=== PATIENT | male | born 1980 | race Caucasian/White ===

== ENCOUNTER → 2024-01-07 | Outpatient (CLI) | payer MEDICAID, SELFPAY ==
--- NOTE | 2024-01-07 10:10 | LES_PTH ---
PATIENT: FRANCISCO AMADOR [facility] U#:[id number] AGE/SX: 43/M ROOM: RE01/07/[address]: Dr. Giorgio Valerio MD : 1980 BED: DIS: 01/07/2024 SPEC #: [id number] RECD: 01/07/24 15:05 STATUS: WAQAR TAWANNA #: [id number] ALEN: 01/07/24 10:[address]: Giorgio Valerio DEPT: SURGICAL PATHOLOGY RECD BY: Montserrat Gee ENTERED: 01/08/24 08:00 SP TYPE: Lesion OTHR DR: AVANI Tissues: Oral cavity, NOS Procedures: Surgery Specimen Level IV HEADER OPERATION: Left excision lip lesion PRE-OP DIAGNOSIS: Other lesions of oral mucosa TISSUE SUBMITTED: Oral cavity lesion MICROSCOPIC DIAGNOSIS Oral cavity lesion, excision: Squamous mucosa with subepithelial fibrosis, consistent with irritation fibroma. SJ/mr 01/09/2024 COMMENT Correlation with clinical findings and appropriate follow up are necessary. MICROSCOPIC DESCRIPTION Slides are reviewed. GROSS DESCRIPTION Received in fixative is one container labeled with the patient's name and designated Oral cavity lesion. The specimen consists of a polypoid piece of mosqueda mucosa measuring 0.7 x 0.6 x 0.5cm. This specimen is bisected and submitted entirely in one cassette. EDNA/ 01/08/2024 TC:5 CPT:97916
== END | disposition home or self-care (01) ==
LOC: LABSPEC 15:28
PROVIDERS: PCP Otolaryngology; Referring Provider Otolaryngology; Visit Provider Otolaryngology
DX: K13.5 Oral submucous fibrosis (principal)
CPT/HCPCS: 88305

== ENCOUNTER → 2024-10-29 | Outpatient (CLI) | payer MEDICAID, SELFPAY ==
[2024-10-31 15:07] LABS: QNTFERON TB Mitogen Value > 10.00 IU/mL (.); QNTFERON TB Nil Value 0.09 IU/mL (.); QNTFERON TB1+ Ag Value 0.09 IU/mL (.); QNTFERON TB2+ Ag Value 0.09 IU/mL (.); QNTIFERON TB Positive Criteria Negative (Negative)
== END | disposition home or self-care (01) ==
LOC: MTLAB 14:20
PROVIDERS: PCP Family Medicine; Referring Provider Physician Assistant Medical; Visit Provider Physician Assistant Medical
DX: L40.0 Psoriasis vulgaris (principal); B35.3 Tinea pedis; Z79.899 Other long term (current) drug therapy
CPT/HCPCS: 36415; 86480

== ENCOUNTER → 2025-06-08 | Outpatient (CLI) | payer MEDICAID, SELFPAY ==
--- OUTSIDE RECORDS SUMMARY | 2025-06-08 14:35 | XMS RPT_ITS | CCD ---
Author Organization [facility] Care Team Providers Care Manager Water Name Role Phone Teodoro MARINO, Dr. Alvares Primary Care Provid er Dr. Giorgio Valerio MD Referring Provider Candido Solares Attending Provider Ev Galeana PA-C Primary Care Provider Leroy Leyva Attending Provider Leroy Leyva Referring Provider Giorgio Valerio Primary Care Unavailshirin Valerio, Giorgio Referring UnavailCandido Wilcox Attending Unavailable Giorgio Valerio Primary Care Unavailshirin Valerio, Giorgio Attending UnavailGiorgio Nieto Referring UnavailLeroy Hemphill Referring Unavailable Ev Costello Primary Care Unavailable Leroy Leyva Attending Unavailable EV GALEANA Admitting Unavailable HUGO EV Primary Care Unavailable HUGOEV Consulting Unavailable HUGO, EV Attending Unavailable PROVIDER, UNKNOWN Consulting Unavailable HUGO EV Attending Unavailable HUGO EV Admitting Unavailable HUGO NORWOOD Primary Care Unavailable EV GALEANA PA-C Primary Care Physician [phone] EV GALEANA PA-C Primary Care Unavailable ALMA ROSA CHERY MD Attending Unavailable ALMA ROSA CHERY MD Attending Unavailable EV GALEANA PA-C Primary Care Unavailable Medications Current Medications Medication Drug Class(es) Dates Sig (Normalized) Sig (Original) aspirin 81 mg delayed release oral tablet (3 sources) Platelet Aggregation Inhibitor, Nonsteroidal Anti-inflammatory Drug Start: 01-26-2025 take 1 mg by mouth once daily aspirin 81 mg oral delayed release tablet mg = tab(s), Oral, qDay, 0 Refill(s) Start Date: 01/26/25 Status: Ordered Medication Dispense Status: Completed Total Allowed Fills: 1 Fills Dispensed: 0 Start: 08-18-2024 Aspirin (Adult Low Dose Aspirin) 81 mg tablet,delayed release (DR/EC) Active 81 mg PO daily August 18, 2024 1:00am 12 hr dextromethorphan hydrobromide 60 mg / guaiFENesin 1200 mg extended release oral tablet (1 source) Uncompetitive O-cbkrbl-K-aspartate Receptor Antagonist, Sigma-1 Agonist Start: 08-18-2024 take 60-1200 mg by mouth every twelve hours as needed Dextromethorphan-Guaifenesin (Mucinex Dm) 60-1,200 mg tablet extended release 12 hr Active 1 {tbl} PO Q12H as needed for cold symptoms August 18, 2024 1:00am fluticasone propionate 0.05 mg/actuat metered dose nasal spray (1 source) Corticosteroid Start: 08-18-2024 take 50 ug nasal route once daily Fluticasone Propionate (Allergy Relief (Fluticasone)) 50 mcg/actuation spray,suspension Active 1 NMA INTRANASAL DAILY 16 August 18, 2024 1:00am administer into each nostril Vitamin D3 (2 sources) Start: 01-26-2025 Vitamin D3 0 Refill(s) Start Date: 01/26/25 Status: Ordered Medication Dispense Status: Completed Total Allowed Fills: 1 Fills Dispensed: 0 Problems Active Problems Problem Classification Problem Date Documented Da te Episodic/Chronic Malaise and fatigue (1 source) Other fatigue; Translations: [Other fatigue] Onset: 10-26-2024 Episodic Other inflammatory condition of skin (1 source) Psoriasis vulgaris; Translations: [Psoriasis vulgaris] Onset: 11-02-2024 Chronic Other screening for suspected conditions (not mental disorders or infectious disease) (1 source) Encounter for screening for malignant neoplasm of prostate; Translations: [Encounter for screening for malignant neoplasm of prostate] Onset: 10-26-2024 Episodic Other upper respiratory infections (2 sources) Viral upper respiratory tract infection; Translations: [Acute upper respiratory infection, unspecified] 08-18-2024 Episodic Residual codes; unclassified (1 source) Viral syndrome; Translations: [Other general symptoms and signs] 08-18-2024 Episodic Residual codes; unclassified (1 source) Other general symptoms and signs; Translations: [Other general symptoms and signs] Onset: 08-18-2024 Episodic Past or Other Problems Problem Classification Problem Date Documented Da te Episodic/Chronic Diseases of mouth; excluding dental (1 source) Unspecified lesions of oral mucosa; Translations: [Unspecified lesions of oral mucosa] Onset: 01-25-2024 Episodic Results Test Name Value Interpretation Reference Range Facility Quantiferon TB-Gold+on 10-31 QFT MITOGEN ZAYNAB > 10.00 Normal . [facility] Comment on above: Performed By: #### L 3400.8000 #### [facility] [address] [place], [place], [phone] QFT NIL VALUE 0.09 IU/mL Normal . [facility] Comment on above: Performed By: #### L [id number] #### [facility] [address] [place], [place], [phone] ([phone] QFT TB GOLD+ Comment Normal . [facility] Comment on above: Result Comment: Shmuel tiFERON-TB Gold Plus is a qualitative indirect test for M tuberculosis infection (including disease) and is intended for use in conjunction with risk assessment, radiography, and other medical and diagnostic evaluations. The QuantiFERON-TB Gold Plus result is determined by subtracting the Nil value from either TB antigen (Ag) value. The Mitogen tube serves as a control for the test. Performed By: #### L [id number] #### [facility] [address] [place], [place], [id number] QFT TB POS CRIT Negative Normal Negative [facility] Comment on above: Result Comment: No r esponse to M tuberculosis antigens detected. Infection with M tuberculosis is unlikely, but high risk individuals should be considered for additional testing (ATS/IDSA/CDC Clinical Practice Guidelines, 2017). The reference range is an Antigen minus Nil result of <0.35 IU/mL. The specimen received for QuantiFERON testing was incubated by the ordering institution. Specific procedures outlined in our Directory of Services and in the package insert for the QuantiFERON Gold (In Tube) test must be followed to enable for proper stimulation of cells for the production of interferon gamma. Chemiluminescence immunoassay methodology Performed at: [facility] [id number] Industrial Economics Teacher: Aleksandr Urias PhD, Phone: [phone] Performed By: #### L [id number] #### [facility] [address] [place], [place], [id number] QFT TB1+ AG ZAYNAB 0.09 IU/mL Normal . [facility] Comment on above: Performed By: #### L [id number] #### [facility] [address] [place], [place], [id number] QFT TB2+ AG ZAYNAB 0.09 IU/mL Normal . [facility] Comment on above: Performed By: #### L [id number] #### [facility] [address] [place], [address] Qualitative QuantiFERON-TB g old in tube testOrdered By: Leroy Rey on 10-29-2024 M. tuberculosis tuberculin stim IFN-g Ql (Bld) 0.09 IU/mL . [facility] T3, FREE [CCL]on 10-27-2024 Free T3 [Mass/Vol] 3.5 pg/mL Normal 2.3-4.1 [facility] Comment on above: Result Comment: [facility] [employer] [address] [place] [address] Jina Costa III, M.D. [id number] Performed By: #### 2 [id number] #### [facility],1 [facility] [address] TESTOSTERONE [CCL]on 025 Testosterone [Mass/Vol] 407 ng/dL Normal 193-[address] [facility] Comment on above: Result Comment: A te stosterone level in the 193-320 ng/dL range with associated clinical symptoms is considered low and may indicate hypogonadism (from NEJ 2010 363:123-135). Results >320 ng/dL are considered normal. [facility] [employer] [address] [place] [address] Jian Costa III, M.D. [id number] Performed By: #### 2 [id number] #### [facility],[address] [place] [address] T4-FREE (FREE THYROXINE)on 0 10-26-2024 Free T4 [Mass/Vol] 0.99 ng/dL Normal 0.76 - 1.46 [facility] Comment on above: Result Comment: P otential of falsely elevated results when biotin concentrations are > 10 ng/mL. Performed By: #### 2 [address]48 #### [address] [address] TSHon 10-26-2024 TSH Qn 2.29 m[IU]/L Normal 0.35 - 3.74 [facility] Comment on above: Performed By: #### 2 72635 #### [facility],[address] [place] [address] VITAMIN D, 25 HYDROXYon 10-15 VitD 24.30 ng/mL Low 30.00 - 100 [facility] Comment on above: Result Comment: 25-O HD3 indicates both endogenous production and supplementation. 25-OHD2 is an indicator of exogenous sources, such as diet or supplementation. Therapy is based on measurement of Total 25-OHD, with levels <20 ng/mL indicative of Vitamin D deficiency, while levels between 20 ng/mL and 30 ng/mL suggest insufficiency. Optimal levels are >=30ng/mL. Vitamin D, 25-OH D3 Not Established Vitamin D, 25-OH D2 Not Established Performed By: #### 2 [address]0118 #### [address] [address] No Panel InformationOrdered By: Candido Dinero on 08-18-2024 Influenza Types A,B Rapid (Clinic) Negative [facility] Office Visit Reporton 2024 Office Visit Report [facility] [address] [place] [address] OFFICE VISIT Date of Service: 08/18/24 MR#: [id number] Acct: [id number] Patient: FRANCISCO AMADOR Rep #: [id number] : 1980 Provider: KARLA Espino Age/Sex: 43/M Location: [facility] Status: Signed Intake Vital Signs 08/18/24 13:33 Height 1.83 m Weight: 107.048 kg BMI 32.0 BP 126/86 H Blood Pressure Location Lt brachial Position Sitting Pulse 101 H Pulse Source Monitor Temp 98.6 F Temp Source Temporal Pulse Oximetry (%) 100 Intake Visit Reasons: HEADACHE, FLU SYMPTOMS,FEVER Chief Complaint: chills Allergies No Known Allergies Allergy (Unverified 08/18/24 13:35) Medications ???Medication ???Instructions ???Recorded ???Confirmed ???Type aspirin 81 mg tablet,delayed 81 mg PO QDAY 08/18/24 08/18/24 Hi story release (Adult Low Dose Aspirin) dextromethorphan-guai fenesin ER 60 1 tab PO Q12H PRN cold symptoms 08/18/24 08/18/24 Rx mg-1,200 mg tab,extend #14 tabs release,12hr (Mucinex DM) fluticasone propionate 50 1 spray intranasal DAILY #16 grams 08/18/24 08/18/24 Rx mcg/actuation nasal spray,suspension (Allergy Relief (fluticasone)) HPI HPI Chief Complaint: chills Details: FRANCISCO AMADOR, is a 43 M who presents to the office today for chills. The patient has been sick since saturday. Worst symptom is chills, he feels like he cannot get warm. He also has fever, fatigue, nasal congestion, sore throat, and cough. No sinus pressure. No ear pain/pressure. He is taking some otc cough medicine that he is not sure what it is with minimal relief. ROS Const Constitutional: Positive for body ache, chills, fatigue and fever(s) ENT ENT: Positive for nasal congestion and sore throat; No ear or mastoid pain or sinus pressure Resp Respiratory: Positive for cough; No shortness of breath or wheezing Endo Endocrine: Positive for fatigue Aller/Imm Allergy/Immunologic: No wheezing Exam Const General: cooperative, healthy appearing, comfortable, no acute distress, well developed and well groomed Nutritional Appearance: average body habitus and well nourished Orientation: alert, awake and oriented x3 HENMT Head: normocephalic and atraumatic Ears: hearing grossly normal bilaterally, external ears normal and TM's normal bilaterally Nose: external nose normal, nares normal and no nasal polyps Face and sinus: sinuses nontender Throat: tonsils normal, uvula midline, posterior oropharynx abnormal erythema and postnasal drainage Resp Effort Inspection: normal respiratory effort, able to speak in complete sentences, symmetric chest movement and cough Auscultation: Bilateral: Clear to Auscultation Cardio Rate: regular rate Rhythm: regular rhythm Heart Sounds: no murmurs Results POC FLU A B Office Flu A B Negative FLU A B Last Edit by Nataly Jones on 08/18/24 13:43 Coding Level of Care Code Off vis,new,level 2 Diagnoses Viral URI with cough J06.9 Assessment and Plan Assessment and Plan (1) Viral URI with cough: Status: Acute Plan: 3 days of viral uri symptoms - congestion, sore throat, cough, aches, chills. rapid flu is negative. start flonase and mucinex dm prn congestion. tylenol prn chills/aches/fever. hydrate and rest. follow up 1 week for reeval if no improvement or if worsening go to the ER no chronic medical issues/medication use Orders: Orders POC FLU A B Today R68.89 - Other general symptoms and signs Medications: New dextromethorphan-guai fenesin 60-1,200 mg ER (Mucinex DM) 1 TAB PO Q12H PRN 14 tabs 0RF cold symptoms fluticasone propionate 50 mcg/actuation (Allergy Relief (fluticasone)) administer into each nostril 1 spray intranasal DAILY 16 grams 0RF 08/18/24 1407 Date Candido ACOSTA Cosigner Signature: Date (if applicable) CC: Normal [facility] Surgery Specimen Level [place] 01-07-2024 Surgery Specimen Level IV -------- Patient Age/Sex Location Account Attending Physician -------- FRANCISCO AMADOR 43/M LABSPEC [id number] Goyo Cheung -------- Specimen: [id number] Received: 01/07/24 Status: WAQAR Gardner Num: [id number] Spec Type: Lesion Subm Dr: Dr. Giorgio Valerio MD HEADER OPERATION: Left excision lip lesion PRE-OP DIAGNOSIS: Other lesions of oral mucosa TISSUE SUBMITTED: Oral cavity lesion -------- MICROSCOPIC DIAGNOSIS Oral cavity lesion, excision: Squamous mucosa with subepithelial fibrosis, consistent with irritation fibroma. [facility] 01/09/2024 COMMENT Correlation with clinical findings and appropriate follow up are necessary. MICROSCOPIC DESCRIPTION Slides are reviewed. GROSS DESCRIPTION Received in fixative is one container labeled with the patient's name and designated Oral cavity lesion. The specimen consists of a polypoid piece of mosqueda mucosa measuring 0.7 x 0.6 x 0.5cm. This specimen is bisected and submitted entirely in one cassette. [facility] 01/08/2024 TC:5 [facility]:[id number] -------- Patient Age/Sex Location Account Attending Physician -------- FRANCISCO AMADOR 43/M [facility]SPEC [id number] Goyo Cheung -------- Signed (signature on file) Dr. Yohan Martin MD 01/09/24 1148 -------- Normal [facility] Comment on above: Performed By: #### P SUIV #### [facility] [address] [place], [address] Free T3on 07-27-2021 Free T3 [Mass/Vol] 3.5 pg/mL Normal 2.3-4.1 [facility] Comment on above: Performed By: #### F REET3, TESTO #### [facility] [address], [place] [id number] Testosteroneon 07-27-2021 Testosterone [Mass/Vol] 531 ng/dL Normal 193-824 C [facility] Comment on above: Performed By: #### F REET3, TESTO #### [facility] [address] [place], [place] [address] Vital Signs Date Time Vital Sign Value Performing Clinician Ash bo 08-18-2024 13:33-0500 Body height 182.[address] Giorgio Valerio MD Work Phone: [facility] 08-18-2024 13:33-0500 Body mass index (BMI) [Ratio] 32 kg/m2 Dr. Giorgio Valerio MD Work Phone: [facility] 08-18-2024 13:33-0500 Body temperature 98.6 [degF] Dr. Giorgio Valerio MD Work Phone: [facility] 08-18-2024 13:33-0500 Body weight 107.[address] Giorgio Valerio MD Work Phone: [facility] 08-18-2024 13:33-0500 Diastolic blood pressure 86 mm[Hg] Dr. Giorgio Valerio MD Work Phone: [facility] 08-18-2024 13:33-0500 Heart rate 101 /min Dr. Giorgio Valerio MD Work Phone: [facility] 08-18-2024 13:33-0500 SaO2% (BldA) [Mass fraction] 100 % Dr. Giorgio Valerio MD Work Phone: [facility] 08-18-2024 13:33-0500 Systolic blood pressure 126 mm[Hg] Dr. Giorgio Valerio MD Work Phone: [facility] Encounters Encounter Date Encounter Type Care Provider Facility Start: 03-04-2025 End: 03-04-2025 ambulatory ALMA ROSA CHERY MD Facility:A Start: 03-04-2025 End: 03-04-2025 Patient encounter procedure ALMA ROSA CHERY MD [facility] Start: 01-26-2025 End: 01-26-2025 ambulatory [facility] Facility:A Start: 01-26-2025 End: 01-26-2025 Patient encounter procedure ALMA ROSA CHERY MD [facility] Start: 12-25-2024 End: 12-25-2024 ambulatory [facility] Start: 10-29-2024 End: 10-29-[address] Giorgio Valerio MD Work Phone: [facility] Work Phone: Start: 10-29-2024 End: 10-29-2024 Patient encounter procedure Leroy ACOSTA -[facility] Work Phone: Start: 10-29-2024 End: 10-29-2024 ambulatory Leroy ACOSTA Facility:[facility] Start: 10-26-2024 End: 10-26-2024 ambulatory [facility] Start: 08-18-2024 End: 08-18-2024 Patient encounter procedure Candido Dinero [facility] Work Phone: Start: 08-18-2024 End: 08-18-2024 ambulatory [facility] Facility:[facility] Start: 01-07-2024 End: 01-07-2024 ambulatory [facility] Facility:[facility] Procedures Date Procedure Procedure Detail Performing Clinician Start: 03-04-2025 Vasectomy ALMA ROSA CHERY MD Start: 10-29-2024 In-vitro immunologic test Dr. Derek Valerio MD Work Phone: Comment on above: QuantiFERON-TB Gold Plus is a qualitativ e indirect test forM tuberculosis infection (including disease) and isintended for use in conjunction with risk assessment,radiography, and other medical and diagnostic evaluations.The QuantiFERON-TB Gold Plus result is determined bysubtracting the Nil value from either TB antigen (Ag)value. The Mitogen tube serves as a control for the test. No response to M tub erculosis antigens detected.Infection with M tuberculosis is unlikely, but high riskindividuals should be considered for additional testing(ATS/IDSA/CDC Clinical Practice Guidelines, 2017). Thereference range is an Antigen minus Nil result of <0.35IU/mL.The specimen received for QuantiFERON testing was incubatedby the ordering institution. Specific procedures outlinedin our Directory of Services and in the package insert forthe QuantiFERON Gold (In Tube) test must be followed toenable for proper stimulation of cells for the productionof interferon gamma. Chemiluminescence immunoassaymethodologyPerformed at: [facility] [id number] [place], [place] [id number] Director: Aleksandr Urias PhD, Phone: [phone] Start: 10-26-2024 PSA screening EV HUGO Comment on above: Performed By: #### [id number] #### [facility],1 [facility] [address] Ankle region structu re (body structure) ALMA ROSA CHERY MD Laser assisted in situ keratomileusis ALMA ROSA CHERY MD Payers Date Payer Category Payer Self-pay 2024 Unknown [id number] 27 [id number] 2022 Medicaid [id number] 1980 Unknown [id number] 2.16.8 [id number] 1980 Unknown [id number] 2.16.8 [id number] 1980 Unknown [id number] 2.16. [id number] 1980 Unknown [id number] 2.16. [id number] Unknown [id number] 2.16.8 [id number] Unknown [id number] 2.16.8 [id number] Unknown [id number] 2.16.8 [id number] Social History Date Type Detail Facility Tobacco smoking stat [facility] Unknown if ever smoked [facility] Work Phone: Start: 1980 Sex Assigned At Male [facility] Start: 01-26-2025 Tobacco smoking status Never s moked tobacco (finding) [facility] Sexual Orientation [facility] Sex Male (finding) [facility] Evaluation note 08-18-2024 Note Date & Type Note Facility 08-18-2024 Evaluation note Diagnosis Onset Date Resolution Viral URI with cough acute [facility] 2024 1:21pm [facility] Work Phone: Evaluation + Plan note Note Date & Type Note Facility Evaluation + Plan note Future Appointments Appointment Date:03/04/2025 04:00:00 PM Scheduled Provider:ALMA ROSA CHERY MD Location:UROLOGY Appointment Type:URO Off Proc Vasectomy [facility] Hospital course Narrative Note Date & Type Note Facility Hospital course Narrative No data available for this section [facility] Hospital Discharge instructions Note Date & Type Note Facility Hospital Discharge instructions No data available for this section [facility] Progress note Note Date & Type Note Facility Progress note No data available for this section [facility] Reason for referral (narrative) Note Date & Type Note Facility Reason for referral (narrative) No reason for referral information available [facility] Work Phone: Summary Purpose Family History No Family History Records FoundNo Family History Records FoundNo Family History Records Found No data available for this section No data available for this section No Family History Records Found Advance Directives No Advanced Directives Records FoundNo Advanced Directives Records FoundNo Advanced Directives Records FoundNo Advanced Directives Records Found Chief Complaint and Reason for Visit Chief Complaint Admit Date HEADACHE, FLU SYMPTOMS,FEVER August 18, 2024 1:21pm Reason for Visit Admit Date Viral URI with cough August 18, 2024 1:2 1pm Additional Source Comments (unrecognized sect ion and content) No Status Records FoundNo Status Records FoundNo Status Records FoundNo Status Records Found INFORMATION SOURCE (unrecogn ized section and content) DATE CREATED AUTHOR 07/28/2021 [facility] DATE CREATED AUTHOR AUTHOR'S ORGANIZ ATION 11/03/2024 [facility] DATE CREATED AUTHOR AUTHOR'S ORGANIZ ATION 12/30/2024 [facility] DATE CREATED AUTHOR AUTHOR'S ORGANIZ ATION 03/19/2025 [facility] Care Teams (unrecognized sec tion and content) Team Status: Active Member Role Status Dates Ev ACOSTA PA-C Primary Care Provider Active Team Status: Inactive Member Role Status Dates Dr. Giorgio Valerio MD Primary Care Provider Ac tive Start: August 18, 2024 End: August 18, 2024 Dr. Giorgio Valerio MD Referring Provider Activ e Start: August 18, 2024 End: August 18, 2024 KARLA Spencer Attending Provider Active Sta rt: August 18, 2024 End: August 18, 2024 Team Status: Inactive Member Role Status Dates Ev Kervin ACOSTA PA-C Primary Care Provider Active Start: October 29, 2024 End: October 29, 2024 KARLA Helms Attending Provider Active Sta rt: October 29, 2024 End: October 29, 2024 KARLA Helms Referring Provider Active Sta rt: October 29, 2024 End: October 29, 2024 Goals (unrecognized section and content) Goals may be documented in a n alternate section No data available for this section No data available for this section FOR RECORDS PERTAINING TO PATIENTS WHO ARE OR HAVE BEEN ENROLLED IN A CHEMICAL DEPENDENCY/SUBSTANCEABUSE PROGRAM, SOME INFORMATION MAY BE OMITTED. This clinical summary was aggregated from multiple sources. Caution should be exercised in using it in the provision of clinical care. This summary normalizes information from multiple sources, and as a consequence, information in this document may materially change the coding, format and clinical context of patient data. In addition, data may be omitted in some cases. CLINICAL DECISIONS SHOULD BE BASED ON THE PRIMARY CLINICAL RECORDS. [employer] provides no warranty or guarantee of the accuracy or completeness of information in this document.
== END | disposition home or self-care (01) ==
LOC: SL 13:38
PROVIDERS: PCP Family Medicine; Visit Provider Nurse Practitioner Family
DX: Z46.89 Encounter for fitting and adjustment of other specified devices (principal)